=== PATIENT | male | born 1975 | race Two or more races ===

== ENCOUNTER 2021-11-26 03:23 | Inpatient (IN) | payer OTHER ==
[~2021-11-26] VITALS: Ht 177.8 cm; Wt 102.1 kg
[2021-11-26] MEDS ORDERED: GRALISE600 MG (03:57)
== END 2021-11-28 14:38 | disposition home or self-care (01) | DRG 194 ==
LOC: ER 03:23 → MEDJ 10:42
PROVIDERS: ADMIT Internal Medicine; ATTEND Internal Medicine
PROC: BW24ZZZ Computerized Tomography (CT Scan) of Chest and Abdomen (ICD-10-PCS; principal; 2021-11-26)
PROC: 8E0ZXY6 Isolation (ICD-10-PCS; 2021-11-26)
PROC: 3E0F7SF Introduction of Other Gas into Respiratory Tract, Via Natural or Artificial Opening (ICD-10-PCS; 2021-11-26)
PROC: 5A0935A Assistance with Respiratory Ventilation, Less than 24 Consecutive Hours, High Flow/Velocity Cannula (ICD-10-PCS; 2021-11-26)
PROC: 4A12X4Z Monitoring of Cardiac Electrical Activity, External Approach (ICD-10-PCS; 2021-11-26)
DX: J16.8 Pneumonia due to other specified infectious organisms (principal); R04.2 Hemoptysis; E86.0 Dehydration; Z20.822 Contact with and (suspected) exposure to COVID-19; R09.02 Hypoxemia; Z86.16 Personal history of COVID-19